=== PATIENT | male | born 1980 | race Caucasian/White ===

== ENCOUNTER 2024-03-21 20:07 | Observation (INO) ==
[2024-03-21 21:00] LABS: ABS Eosinophils 0.1 10^3/uL (0.0-0.5); ABS Lymphocytes 2.5 10^3/uL (1.0-4.8); ABS Monocytes 0.4 10^3/uL (0.0-1.1); ABS Neutrophils 3.6 10^3/uL (1.5-7.6); ABS Nucleated RBC 0.01 10^3/ul; Eosinophil % 1.7 %; Hematocrit 45.6 % (38-53); Hemoglobin 15.7 g/dL (13.2-16.3); Lymphocyte % 37.7 %; Mean Corpuscular Hemoglobin 30.6 pg (27-33); Mean Corpuscular Hgb Conc 34.5 g/dL (31-36); Mean Corpuscular Volume 88.7 fL (80-97); Mean Platelet Volume 8.2 fL (7.5-11.2); Nucleated Red Blood Cells % 0.2 %/100WBC (0.0-0.8); Platelet Count 292 10^3/uL (150-450); Red Blood Count 5.14 10^6/uL (4.06-5.63); Red Cell Distribution Width 12.2 % (12-17); White Blood Count 6.6 10^3/uL (3.6-10.2)
[2024-03-21 21:09] LABS: INR 0.99 (0.83-1.13)
[2024-03-21 21:46] LABS: ALT 83 U/L (7-52); AST 40 U/L (13-39); Albumin 4.7 g/dL (3.2-5.2); Albumin/Globulin Ratio 2.1 (1-3); Alkaline Phosphatase 52 U/L (35-149); Anion Gap 8 mmol/L (2-16); Blood Urea Nitrogen 13 mg/dL (6-24); CO2 Carbon Dioxide 29 mmol/L (22-32); Calcium 10.1 mg/dL (8.6-10.3); Chloride 103 mmol/L (101-111); Creatinine, Serum 0.89 mg/dL (0.67-1.17); Globulin 2.2 g/dL (2-4); Glucose 104 mg/dL (70-100); Sodium 140 mmol/L (135-145); Total Bilirubin 0.7 mg/dL (0.2-1.0); Total Protein 6.9 g/dL (6.4-8.9)
[2024-03-21 22:02] LABS: High Sens Troponin Baseline 6 pg/mL (<20); TSH Ultra Thyroid Stim Horm < 0.01 mcIU/mL (0.34-5.60)
[2024-03-21 22:04] LABS: Free T4 1.39 ng/dL (0.61-1.12)
[2024-03-21 22:37] LABS: High Sensitivity Troponin 1 Hr 6 pg/mL (<20)
[2024-03-22] MEDS: Lactated Ringers 1000 ml BAG 1,000 ML IV SCH (03:32)
[2024-03-22 03:49] LABS: Free T3 5.06 pg/mL (2.5-3.9)
[2024-03-22] MEDS: Sulfur Hexaflouride MICROSPHR 25 MG VIAL IV ONE (09:09)
[2024-03-22 10:04] LABS: Hepatitis B Surface Antigen Nonreactive (Nonreactive)
[2024-03-22 10:09] LABS: Hepatitis A Ab IgM Negative (Negative); Hepatitis B Core IgM Nonreactive (Nonreactive)
[2024-03-22 10:21] LABS: Hepatitis B Surface Ab Immune (Immune); Hepatitis C Antibody Negative (Negative)
[2024-03-22 15:08] VITALS: BP 115/67
== END 2024-03-22 17:35 | disposition home or self-care (01) ==
LOC: EDHOLD 20:07 → ED 20:07 → SUATTDRO 03-22 01:00 → MED 03-22 04:40
PROVIDERS: ADMIT Internal Medicine; ATTEND Student in an Organized Health Care Education/Training Program